=== PATIENT | female | born 1985 | race Caucasian/White ===

== ENCOUNTER 2023-09-15 15:25 | Inpatient (IN) | payer OTHER ==
[2023-09-15 16:26] VITALS: BMI 25.4
[2023-09-15] MEDS ORDERED: BISMUTH SUBSALICYLATE 524 MG/30 ML PO PRN (18:31)
[2023-09-15] MEDS ORDERED: BISACODYL 5 MG TABLET.DR (FP) PO PRN (18:31)
[2023-09-15] MEDS ORDERED: BENZOCAINE/MENTHOL (CHLORASEPTIC ) LOZENGE MM PRN (18:31)
[2023-09-15] MEDS ORDERED: MAG HYDROX/AL HYDROX/SIMETH 30 ML UNIT-DOSE CUP PO PRN (18:31)
[2023-09-15] MEDS ORDERED: NICOTINE POLACRILEX 2 MG GUM BUC PRN (18:31)
[2023-09-15] MEDS ORDERED: MAGNESIUM HYDROX 2400MG/30ML ORAL SUSPENSION 30 ML CUP PO PRN (18:31)
[2023-09-15] MEDS ORDERED: BENZONATATE 200 MG CAPSULE PO PRN (18:31)
[2023-09-15] MEDS ORDERED: IBUPROFEN 600 MG TABLET (FP) PO PRN (18:31)
[2023-09-15] MEDS ORDERED: POLYETHYLENE GLYCOL (HEALTHYLAX) 3350 17 GM PACKET PO PRN (18:31)
[2023-09-15] MEDS ORDERED: diazePAM 5 MG TABLET PO PRN (18:31)
[2023-09-15] MEDS ORDERED: METHOCARBAMOL 500 MG TABLET PO PRN (18:31)
[2023-09-15] MEDS ORDERED: NALOXONE HCL (KLOXXADO) 8 MG SPRAY NS PRN (18:31)
[2023-09-15] MEDS ORDERED: IBUPROFEN 400 MG TABLET (FP) PO PRN (18:31)
[2023-09-15] MEDS ORDERED: ONDANSETRON *ODT* 4 MG TABLET SL PRN (18:31)
[2023-09-15] MEDS ORDERED: DICYCLOMINE HCL 10 MG CAPSULE PO PRN (18:31)
[2023-09-15] MEDS ORDERED: LOPERAMIDE HCL 2 MG CAPSULE PO PRN (18:31)
[2023-09-15] MEDS ORDERED: hydrOXYzine PAMOATE 25 MG CAPSULE (FP) PO PRN (18:31)
[2023-09-15] MEDS ORDERED: guaiFENesin 600 MG TABLET.ER (FP) PO PRN (18:31)
[2023-09-15] MEDS ORDERED: ACETAMINOPHEN 325 MG TABLET (FP) PO PRN (18:31)
[2023-09-15] MEDS ORDERED: NALOXONE HCL 0.4 MG/ML VIAL IM PRN (18:31)
[2023-09-15] MEDS ORDERED: cloNIDine HCL 0.1 MG TABLET PO ONE (21:52)
[2023-09-15] MEDS ORDERED: cloNIDine HCL 0.1 MG TABLET ONE (21:54)
[2023-09-15] MEDS ORDERED: MELATONIN 5 MG TABLETS PO SCH (22:00)
[2023-09-15] MEDS ORDERED: THIAMINE HCL 100 MG TABLET (FP) PO SCH (22:00)
[2023-09-15] MEDS: diazePAM 5 MG TABLET PO SCH (22:41)
[2023-09-16] MEDS: diazePAM 5 MG TABLET PO SCH ×2 (05:53→10:18)
[2023-09-16 09:41] VITALS: BP 128/86; PULSE 77; RESP 16; TEMP 97.7
[2023-09-16] MEDS ORDERED: PRENATAL VITAMINS W/ FOLIC ACID TABLET (FP) PO SCH (10:00)
[2023-09-16 10:12] LABS: HEMATOCRIT 44.4 % (32.4-45.2); HEMOGLOBIN 14.7 GM/dL (10.7-15.3); MCH 31.9 pg (25.7-33.7); MCHC 33.1 g/dl (32.0-36.0); MEAN CELL VOLUME 96.5 fl (80-96); MEAN PLT VOLUME 7.7 fl (7.5-11.1); PLATELET COUNT 178 10^3/uL (134-434); RDW 15.4 % (11.6-15.6); WHITE BLOOD COUNT 5.4 K/mm3 (4.0-10.0)
[2023-09-16 11:30] LABS: CHLORIDE 104 mmol/L (98-107); POTASSIUM 4.2 mmol/L (3.5-5.1); SODIUM 137 mmol/L (136-145)
[2023-09-16 11:33] LABS: ALBUMIN 3.4 g/dl (3.4-5.0); ANION GAP 5 mmol/L (4-13); BLOOD UREA NITROGEN 7.3 mg/dL (7-18); CALCIUM 9.5 mg/dL (8.5-10.1); CO2 29 mmol/L (21-32)
[2023-09-16 11:34] LABS: GLUCOSE,RANDOM 101 mg/dL (74-106)
[2023-09-16 11:36] LABS: CREATININE 0.6 mg/dL (0.55-1.3); SGOT/AST 40 U/L (15-37); SGPT/ALT 27 U/L (13-61)
[2023-09-16 11:37] LABS: TOT PROT 7.2 g/dl (6.4-8.2)
[2023-09-16 11:38] LABS: BILIRUBIN,TOTAL 0.7 mg/dL (0.2-1)
[2023-09-16 11:39] LABS: ALK PHOS 83 U/L (45-117)
[2023-09-17] MEDS ORDERED: diazePAM 5 MG TABLET PO SCH (06:00)
[2023-09-18] MEDS ORDERED: diazePAM 5 MG TABLET PO SCH (06:00)
[2023-09-19] MEDS ORDERED: diazePAM 5 MG TABLET PO ONE (06:00)
== END 2023-09-16 11:49 | disposition left against medical advice (07) | DRG 770 ==
LOC: YASAS 15:25 → Y3N 19:11
PROVIDERS: ADMIT Allergy & Immunology; ATTEND Allergy & Immunology
PROC: HZ2ZZZZ Detoxification Services for Substance Abuse Treatment (ICD-10-PCS; principal; 2023-09-15)
DX: F10.230 Alcohol dependence with withdrawal, uncomplicated (principal); F17.210 Nicotine dependence, cigarettes, uncomplicated; U07.1 COVID-19; I10 Essential (primary) hypertension
CPT/HCPCS: 36415; 80053; 80307; 81025; 82140; 85027; 86780; 87635; 87811; 93005; 93010